=== PATIENT | female | born 1945 | race Caucasian/White ===

== ENCOUNTER 2020-09-29 15:47 | Outpatient (CLI) | payer MEDICARE | END 2020-09-29 15:48 | disposition home or self-care (01) | LOC: CSHMRI 15:47 | PROVIDERS: ATTEND Neurological Surgery | DX: D32.0 Benign neoplasm of cerebral meninges (principal) | CPT/HCPCS: 70553 ==

== ENCOUNTER 2022-12-01 13:06 | Outpatient (CLI) | payer OTHER, MEDICARE | END 2022-12-01 13:07 | disposition home or self-care (01) | LOC: CSHMRI 13:06 | PROVIDERS: ATTEND Psychiatry & Neurology Neurology | DX: R41.3 Other amnesia (principal); G93.89 Other specified disorders of brain; I67.9 Cerebrovascular disease, unspecified | CPT/HCPCS: 70553; 82565 ==

== ENCOUNTER 2023-01-12 19:14 | Inpatient (IN) | payer OTHER, MEDICARE ==
[2023-01-12 19:49] LABS: #Monocytes 0.4 10x3/uL (0.0-1.1); %Basophils 0.1 % (0.0-2.0); %Lymphocytes 4.2 % (18.0-47.0); %Monocytes 2.2 % (0.0-10.0); %Neutrophils 93.2 % (40.0-75.0); Hematocrit 40.3 % (34.9-44.5); Hemoglobin 12.8 g/dL (12.0-15.5); Mean Corpuscular HGB CONC 31.8 g/dL (32.0-36.0); Mean Corpuscular Hemoglobin 27.6 pg (27.0-33.0); Mean Corpuscular Volume 86.9 fl (81.6-98.3); Platelet Count 355 10x3/uL (150-450); RBC Distribution Width 14.7 % (11.5-14.5); Red Blood Cell (RBC) Count 4.64 10x6/uL (3.90-5.03); White Blood Cell (WBC) Count 20.4 10x3/uL (3.5-10.5)
[2023-01-12 19:56] LABS: Bilirubin Neg (Negative); Blood, Urine Negative (Negative); Glucose, Urine (Dipstick) Normal (Negative); Ketone, Urine 5 mg/dL (Negative); Leukocyte Negative (Negative); Nitrite Negative (Negative); Protein, Urine (Dipstick) 15 mg/dl (Neg-Trace); Urobilinogen Normal mg/dL (Less than 2)
[2023-01-12 19:58] LABS: Clarity Clear (Clear)
[2023-01-12 20:03] LABS: ALT (SGPT) 17 U/L (8-55); AST (SGOT) 26 U/L (5-34); Albumin 4.3 g/dL (3.4-4.8); Alkaline Phosphatase 73 U/L (40-110); Anion Gap 17 mmol/L (10-20); BUN (Urea Nitrogen) 14 mg/dL (9.8-20.1); Bilirubin, Total 0.4 mg/dL (0.2-1.2); Calc. Creatinine Clearance 0 mL/min (70-130); Calcium 9.6 mg/dL (7.8-10.44); Carbon Dioxide 21 mmol/L (23-31); Chloride 104 mmol/L (98-107); Estimated GFR 55; Glucose 121 mg/dL (83-110); Potassium 4.2 mmol/L (3.5-5.1); Protein, Total 7.3 g/dL (5.8-8.1); Sodium 138 mmol/L (136-145)
[2023-01-12 20:04] LABS: Bacteria/HPF Rare-Few HPF (None Seen); CAUTI Indications for Culture Alt mental st,lethar; RBC/HPF None Seen HPF (0-3); Squamous Epithelial 0-3 HPF (0-3); WBC/HPF None Seen HPF (0-3)
[2023-01-12 20:05] LABS: Urine Culture Reflex No No
[2023-01-12 20:07] LABS: Troponin I Less than 0.010 ng/mL (< 0.028)
[2023-01-12] MEDS ORDERED: Vancomycin 1 GM VIAL ONE (21:06)
[2023-01-12] MEDS ORDERED: Cefepime 2 GM VIAL ONE (21:07)
[2023-01-12 21:32] LABS: SARS-CoV-2 NAA Rapid Test Not Detected (NotDetected)
[2023-01-12 23:03] VITALS: BMI 23.8
[2023-01-12] MEDS ORDERED: Aspirin 300 MG Suppository PR SCH (23:30)
[2023-01-12 23:59] LABS: Troponin I Less than 0.010 ng/mL (< 0.028)
[2023-01-12] MEDS ORDERED: Vancomycin HCl 500 MG in Sodium Chloride 0.9% 100 ML IVPB SCH (23:59)
[2023-01-13] MEDS: Sodium Chloride 0.9% 1,000 ML IV SCH ×2 (00:10→11:57)
[2023-01-13 00:13] LABS: Free T4 (Free Thyroxine) 1.29 ng/dL (0.70-1.48)
[2023-01-13 03:58] LABS: Barbiturates Screen Not Detected (NotDetected); Cocaine Metabolite Screen Not Detected (NotDetected); Oxycodone Screen Not Detected (NotDetected); Phencyclidine (PCP) Not Detected (NotDetected); THC/Cannabinoid Screen Not Detected (NotDetected)
[2023-01-13 04:13] LABS: Amphetamine Not Detected (NotDetected); Benzodiazepine Screen Not Detected (NotDetected); Methadone Not Detected (NotDetected); Methamphetamine Not Detected (NotDetected); Opiate Screen Not Detected (NotDetected); Tricyclic Screen Not Detected (NotDetected)
[2023-01-13 04:50] LABS: Anion Gap 15 mmol/L (10-20); BUN (Urea Nitrogen) 12 mg/dL (9.8-20.1); Calc. Creatinine Clearance 59 mL/min (70-130); Calcium 8.7 mg/dL (7.8-10.44); Carbon Dioxide 19 mmol/L (23-31); Chloride 108 mmol/L (98-107); Estimated GFR 70; Glucose 103 mg/dL (83-110); Sodium 138 mmol/L (136-145)
[2023-01-13 05:44] LABS: #Monocytes 0.6 10x3/uL (0.0-1.1); #Neutrophils 12.9 10x3/uL (1.5-8.4); %Basophils 0.2 % (0.0-2.0); %Eosinophils 0.1 % (0.0-6.0); %Lymphocytes 10.9 % (18.0-47.0); %Monocytes 4.1 % (0.0-10.0); %Neutrophils 84.2 % (40.0-75.0); Hematocrit 35.8 % (34.9-44.5); Hemoglobin 11.5 g/dL (12.0-15.5); Mean Corpuscular HGB CONC 32.1 g/dL (32.0-36.0); Mean Corpuscular Hemoglobin 27.7 pg (27.0-33.0); Mean Corpuscular Volume 86.3 fl (81.6-98.3); Mean Platelet Volume 9.2 fl (7.4-10.4); Platelet Count 300 10x3/uL (150-450); RBC Distribution Width 14.7 % (11.5-14.5); Red Blood Cell (RBC) Count 4.15 10x6/uL (3.90-5.03); White Blood Cell (WBC) Count 15.4 10x3/uL (3.5-10.5)
[2023-01-13] MEDS: Levothyroxine Sodium 100 MCG TAB PO SCH (06:25)
[2023-01-13] MEDS ORDERED: Multivit, Therapeutic 1 TAB PO SCH ×2 (09:00→21:00)
[2023-01-13] MEDS ORDERED: Ezetimibe 10 MG TAB PO SCH ×2 (09:00→21:00)
[2023-01-13] MEDS ORDERED: Aspirin 81 mg Enteric Coated Tablet PO SCH ×2 (09:00→21:00)
[2023-01-13] MEDS ORDERED: Donepezil HCl 5 MG TAB PO SCH ×2 (09:00→21:00)
[2023-01-13] MEDS ORDERED: Sertraline 100 MG TAB PO SCH ×2 (09:00→21:00)
[2023-01-13] MEDS: Cefepime 1 GM in Sodium Chloride 0.9% 100 ML IVPB SCH ×2 (11:56→22:04)
[2023-01-13] MEDS ORDERED: Lorazepam 2 MG/ML VIAL SLOW IVP SCH (15:00)
[2023-01-14] MEDS ORDERED: VANCOMYCIN 1.25 GM/250 ML BAG 1.25 GM in Premix Bag 1 BAG IVPB SCH (01:00)
[2023-01-14] MEDS: Levothyroxine Sodium 100 MCG TAB PO SCH (06:14)
[2023-01-14] MEDS: Sodium Chloride 0.9% 1,000 ML IV SCH (06:15)
[2023-01-14 06:38] LABS: #Basophils 0.1 10x3/uL (0.0-0.2); #Eosinphils 0.1 10x3/uL (0.0-0.5); #Monocytes 0.5 10x3/uL (0.0-1.1); #Neutrophils 6.6 10x3/uL (1.5-8.4); %Basophils 0.6 % (0.0-2.0); %Eosinophils 1.1 % (0.0-6.0); %Lymphocytes 20.8 % (18.0-47.0); %Neutrophils 72.2 % (40.0-75.0); Hematocrit 33.2 % (34.9-44.5); Hemoglobin 10.8 g/dL (12.0-15.5); Mean Corpuscular HGB CONC 32.5 g/dL (32.0-36.0); Mean Corpuscular Hemoglobin 28.2 pg (27.0-33.0); Mean Corpuscular Volume 86.7 fl (81.6-98.3); Mean Platelet Volume 9.1 fl (7.4-10.4); Platelet Count 270 10x3/uL (150-450); RBC Distribution Width 14.8 % (11.5-14.5); Red Blood Cell (RBC) Count 3.83 10x6/uL (3.90-5.03); White Blood Cell (WBC) Count 9.1 10x3/uL (3.5-10.5)
[2023-01-14 06:49] LABS: Anion Gap 14 mmol/L (10-20); BUN (Urea Nitrogen) 8 mg/dL (9.8-20.1); Calc. Creatinine Clearance 62 mL/min (70-130); Calcium 8.7 mg/dL (7.8-10.44); Carbon Dioxide 19 mmol/L (23-31); Chloride 111 mmol/L (98-107); Estimated GFR 74; Glucose 102 mg/dL (83-110); Potassium 3.6 mmol/L (3.5-5.1); Sodium 140 mmol/L (136-145)
[2023-01-14] MEDS: Cefepime 1 GM in Sodium Chloride 0.9% 100 ML IVPB SCH (09:07)
[2023-01-14 13:22] VITALS: BP 137/62; TEMP 98
[2023-01-14] MEDS ORDERED: Cefepime 1 GM in Sodium Chloride 0.9% 100 ML IVPB SCH (17:00)
== END 2023-01-14 14:08 | disposition home or self-care (01) | DRG 72 ==
LOC: CSHERS 19:14 → CSHTELE 21:51
PROVIDERS: ADMIT Family Medicine; ATTEND Nurse Practitioner Family
DX: G93.40 Encephalopathy, unspecified (principal); F03.90 Unspecified dementia, unspecified severity, without behavioral disturbance, psychotic disturbance, mood disturbance, and anxiety; E03.9 Hypothyroidism, unspecified; F32.A Depression, unspecified; D72.828 Other elevated white blood cell count; D32.9 Benign neoplasm of meninges, unspecified; E78.5 Hyperlipidemia, unspecified; R41.3 Other amnesia; Z20.822 Contact with and (suspected) exposure to COVID-19; Z98.890 Other specified postprocedural states; Z88.8 Allergy status to other drugs, medicaments and biological substances; Z79.82 Long term (current) use of aspirin
CPT/HCPCS: 36415; 70450; 70551; 71045; 80048; 80053; 80306; 81001; 82140; 83605; 83735; 84145; 84439; 84443; 84484; 85025; 87040; 87086; 93005; 93010; J0692; J1650; J2060; J3370; J3490; J7050

== ENCOUNTER 2023-11-13 15:31 | Inpatient (IN) | payer OTHER, MEDICARE ==
[2023-11-13 16:30] LABS: Hematocrit 34.8 % (34.9-44.5); Hemoglobin 12.5 g/dL (12.0-15.5); MDiff Complete? YES; Mean Corpuscular HGB CONC 35.9 g/dL (32.0-36.0); Mean Corpuscular Hemoglobin 31.5 pg (27.0-33.0); Mean Corpuscular Volume 87.7 fL (81.6-98.3); Mean Platelet Volume 9.3 fL (7.4-10.4); Platelet Count 242 10x3/uL (150-450); RBC Distribution Width 12.4 % (11.5-14.5); Red Blood Cell (RBC) Count 3.97 10x6/uL (3.90-5.03); White Blood Cell (WBC) Count 14.7 10x3/uL (3.5-10.5)
[2023-11-13 16:39] LABS: Acetaminophen Less than 10 mcg/mL (10.0-30.0); Alcohol Less than 10.0 mg/dL (Less than 10); Salicylate Less than 8.0 mg/dL (15.0-30.0)
[2023-11-13 16:43] LABS: ALT (SGPT) 17 U/L (8-55); AST (SGOT) 36 U/L (5-34); Alkaline Phosphatase 46 U/L (40-110); Anion Gap 14 mmol/L (10-20); BUN (Urea Nitrogen) 10 mg/dL (9.8-20.1); Bilirubin, Total 0.5 mg/dL (0.2-1.2); Calc. Creatinine Clearance 0 mL/min (70-130); Carbon Dioxide 22 mmol/L (23-31); Chloride 99 mmol/L (98-107); Estimated GFR 69; Globulin 2.8 g/dL (2.4-3.5); Glucose 140 mg/dL (83-110); Protein, Total 6.8 g/dL (5.8-8.1); Sodium 131 mmol/L (136-145)
[2023-11-13 17:22] LABS: Band 11 % (5-11); Lymphocytes 7 % (21-51); Monocytes 4 % (0-10); Neutrophil 78 % (42-75)
[2023-11-13 17:25] LABS: Dohle Bodies SLIGHT; Platelet Adequacy Comment Platelets Normal; RBC Morph Comment Within Normal Limits; Toxic Granulation SLIGHT
[2023-11-13] MEDS ORDERED: Acetaminophen 650 MG Suppository PR PRN (17:36)
[2023-11-13] MEDS ORDERED: Ondansetron ODT 4 MG TAB PO PRN (17:36)
[2023-11-13] MEDS ORDERED: Ketorolac Tromethamine 30 MG (1 mL) VIAL ONE (18:12)
[2023-11-13 18:59] LABS: Troponin I 0.028 ng/mL (< 0.028)
[2023-11-13 19:13] LABS: Free T4 (Free Thyroxine) 1.06 ng/dL (0.70-1.48); Thyroid Stimulating Hormone 0.3202 uIU/mL (0.35-4.94)
[2023-11-13] MEDS ORDERED: Communication Order-Pharmacy FS PRN (19:38)
[2023-11-13] MEDS: Communication Order-Pharmacy FS ONE (20:28)
[2023-11-13] MEDS: Famotidine 20 MG TAB PO SCH (20:56)
[2023-11-13 21:00] LABS: Troponin I 0.063 ng/mL (< 0.028)
[2023-11-13 22:19] VITALS: BMI 27.3
[2023-11-13 22:24] LABS: Lactic Acid 2.9 mmol/L (0.5-2.2)
[2023-11-14 00:15] LABS: Troponin I 0.027 ng/mL (< 0.028)
[2023-11-14 03:23] LABS: Bilirubin Neg (Negative); Blood, Urine 10 (Negative); Clarity Clear (Clear); Glucose, Urine (Dipstick) Normal (Negative); Ketone, Urine 15 mg/dL (Negative); Leukocyte Negative (Negative); Nitrite Negative (Negative); Protein, Urine (Dipstick) 30 mg/dl (Neg-Trace); Urobilinogen Normal mg/dL (Less than 2)
[2023-11-14 03:30] LABS: Bacteria/HPF None Seen HPF (None Seen); RBC/HPF 0-3 HPF (0-3); Squamous Epithelial 0-3 HPF (0-3); WBC/HPF None Seen HPF (0-3)
[2023-11-14 04:20] LABS: #Basophils 0.01 10x3/uL (0.0-0.2); #Monocytes 0.31 10x3/uL (0.0-1.1); %Basophils 0.1 % (0.0-2.0); %Lymphocytes 11.9 % (18.0-47.0); %Monocytes 3.1 % (0.0-10.0); %Neutrophils 84.3 % (40.0-75.0); Hematocrit 31.6 % (34.9-44.5); Hemoglobin 11.3 g/dL (12.0-15.5); Mean Corpuscular HGB CONC 35.8 g/dL (32.0-36.0); Mean Corpuscular Hemoglobin 31.2 pg (27.0-33.0); Mean Corpuscular Volume 87.3 fL (81.6-98.3); Mean Platelet Volume 9.3 fL (7.4-10.4); Platelet Count 194 10x3/uL (150-450); RBC Distribution Width 12.4 % (11.5-14.5); Red Blood Cell (RBC) Count 3.62 10x6/uL (3.90-5.03); White Blood Cell (WBC) Count 9.9 10x3/uL (3.5-10.5)
[2023-11-14 04:31] LABS: Anion Gap 13 mmol/L (10-20); BUN (Urea Nitrogen) 10 mg/dL (9.8-20.1); Calc. Creatinine Clearance 56 mL/min (70-130); Calcium 8.9 mg/dL (7.8-10.44); Carbon Dioxide 20 mmol/L (23-31); Chloride 100 mmol/L (98-107); Estimated GFR 72; Glucose 96 mg/dL (83-110); Potassium 3.4 mmol/L (3.5-5.1); Sodium 130 mmol/L (136-145)
[2023-11-14] MEDS: Enoxaparin 40 MG (0.4 mL) SYRINGE SC SCH (10:49)
[2023-11-14] MEDS ORDERED: Ondansetron PF 4 MG/2 ML Vial IVP PRN (19:07)
[2023-11-14] MEDS: Sodium Chloride 0.9% 1,000 ML IV SCH (21:45)
[2023-11-14] MEDS: Famotidine/PF 20 mg/2ml Vial SLOW IVP SCH (21:50)
[2023-11-15] MEDS: Levothyroxine Sodium 100 MCG TAB PO SCH (08:32)
[2023-11-15] MEDS: Aspirin 81 mg Enteric Coated Tablet PO SCH (10:12)
[2023-11-15] MEDS: Sertraline 100 MG TAB PO SCH (10:12)
[2023-11-15] MEDS: Donepezil HCl 5 MG TAB PO SCH (10:12)
[2023-11-15 10:14] LABS: #Basophils 0.02 10x3/uL (0.0-0.2); #Eosinphils 0.02 10x3/uL (0.0-0.5); #Monocytes 0.37 10x3/uL (0.0-1.1); #Neutrophils 7.82 10x3/uL (1.5-8.4); %Basophils 0.2 % (0.0-2.0); %Eosinophils 0.2 % (0.0-6.0); %Monocytes 3.9 % (0.0-10.0); %Neutrophils 83.3 % (40.0-75.0); Hemoglobin 11.5 g/dL (12.0-15.5); Mean Corpuscular HGB CONC 35.9 g/dL (32.0-36.0); Mean Corpuscular Hemoglobin 31.3 pg (27.0-33.0); Mean Corpuscular Volume 87.2 fL (81.6-98.3); Mean Platelet Volume 10.1 fL (7.4-10.4); Platelet Count 225 10x3/uL (150-450); RBC Distribution Width 12.9 % (11.5-14.5); Red Blood Cell (RBC) Count 3.67 10x6/uL (3.90-5.03); White Blood Cell (WBC) Count 9.4 10x3/uL (3.5-10.5)
[2023-11-15 10:21] LABS: Anion Gap 15 mmol/L (10-20); BUN (Urea Nitrogen) 10 mg/dL (9.8-20.1); Calc. Creatinine Clearance 62 mL/min (70-130); Calcium 8.8 mg/dL (7.8-10.44); Carbon Dioxide 18 mmol/L (23-31); Chloride 103 mmol/L (98-107); Estimated GFR 81; Glucose 83 mg/dL (83-110); Potassium 3.6 mmol/L (3.5-5.1); Sodium 132 mmol/L (136-145)
[2023-11-15] MEDS: levETIRAcetam 500 MG TAB PO SCH (21:33)
[2023-11-15] MEDS: QUEtiapine 25 MG TAB PO SCH (21:33)
[2023-11-15] MEDS: Acetaminophen 325 MG TAB PO PRN (21:33)
[2023-11-16 04:58] LABS: #Basophils 0.03 10x3/uL (0.0-0.2); #Eosinphils 0.19 10x3/uL (0.0-0.5); #Monocytes 0.69 10x3/uL (0.0-1.1); #Neutrophils 4.93 10x3/uL (1.5-8.4); %Basophils 0.4 % (0.0-2.0); %Eosinophils 2.4 % (0.0-6.0); %Lymphocytes 25.9 % (18.0-47.0); %Monocytes 8.7 % (0.0-10.0); %Neutrophils 62.2 % (40.0-75.0); Hematocrit 39.1 % (34.9-44.5); Hemoglobin 13.7 g/dL (12.0-15.5); Mean Corpuscular Hemoglobin 30.9 pg (27.0-33.0); Mean Corpuscular Volume 88.1 fL (81.6-98.3); RBC Distribution Width 13.1 % (11.5-14.5); Red Blood Cell (RBC) Count 4.44 10x6/uL (3.90-5.03); White Blood Cell (WBC) Count 7.9 10x3/uL (3.5-10.5)
[2023-11-16 05:02] LABS: Mean Platelet Volume 9.7 fL (7.4-10.4); Platelet Count 231 10x3/uL (150-450)
[2023-11-16 05:13] LABS: Anion Gap 16 mmol/L (10-20); BUN (Urea Nitrogen) 10 mg/dL (9.8-20.1); Calc. Creatinine Clearance 62 mL/min (70-130); Calcium 8.9 mg/dL (7.8-10.44); Carbon Dioxide 16 mmol/L (23-31); Chloride 108 mmol/L (98-107); Estimated GFR 81; Glucose 75 mg/dL (83-110); Potassium 3.4 mmol/L (3.5-5.1); Sodium 137 mmol/L (136-145)
[2023-11-16] MEDS: Potassium Chloride 20 MEQ TAB PO SCH (09:59)
[2023-11-16] MEDS: levETIRAcetam 500 MG (5 mL) VIAL SLOW IVP SCH (14:02)
[2023-11-16] MEDS: Donepezil HCl 5 MG TAB PO SCH (21:55)
[2023-11-16] MEDS: levETIRAcetam 500 MG TAB PO SCH (21:55)
[2023-11-16] MEDS: Sertraline 100 MG TAB PO SCH (21:56)
[2023-11-17] MEDS: Diclofenac 1% 100 GM Topical GEL TP SCH (19:32)
[2023-11-17] MEDS: D5 1/2 NS w/20 mEq KCL 1,000 ML IV SCH (19:37)
[2023-11-18] MEDS: Potassium Chloride 20 MEQ TAB PO SCH ×2 (15:57)
[2023-11-18] MEDS: QUEtiapine 25 MG TAB PO SCH (21:28)
[2023-11-18] MEDS: Diclofenac 1% 50 GM TOPICAL GEL TP SCH (21:32)
[2023-11-19 05:34] LABS: Anion Gap 16 mmol/L (10-20); BUN (Urea Nitrogen) 11 mg/dL (9.8-20.1); Calc. Creatinine Clearance 62 mL/min (70-130); Calcium 9.3 mg/dL (7.8-10.44); Carbon Dioxide 22 mmol/L (23-31); Chloride 102 mmol/L (98-107); Estimated GFR 81; Glucose 103 mg/dL (83-110); Magnesium 1.8 mg/dL (1.6-2.6); Potassium 4.2 mmol/L (3.5-5.1); Sodium 136 mmol/L (136-145)
[2023-11-19] MEDS: Diclofenac 1% 50 GM TOPICAL GEL TP SCH (08:43)
[2023-11-19] MEDS: Magnesium 2 GM/50 ML(in water) 2 GM in Premix 1 BAG IVPB SCH (08:44)
[2023-11-19] MEDS: QUEtiapine 25 MG TAB PO SCH (21:01)
[2023-11-20 08:45] VITALS: TEMP 98.1
[2023-11-20 14:14] VITALS: BP 102/62
== END 2023-11-20 14:47 | DRG 71 ==
LOC: CSHERS 15:31 → CSHTELE 18:06 → OBSVTOIN 11-14 16:40
PROVIDERS: ADMIT Family Medicine; ATTEND Internal Medicine
DX: G93.40 Encephalopathy, unspecified (principal); F03.93 Unspecified dementia, unspecified severity, with mood disturbance; F05 Delirium due to known physiological condition; Z88.8 Allergy status to other drugs, medicaments and biological substances; D72.829 Elevated white blood cell count, unspecified; Z79.899 Other long term (current) drug therapy; F32.A Depression, unspecified; E03.9 Hypothyroidism, unspecified; Z91.018 Allergy to other foods; Z79.82 Long term (current) use of aspirin; Z79.890 Hormone replacement therapy; R41.3 Other amnesia
CPT/HCPCS: 36415; 70450; 70551; 71045; 72170; 74230; 80048; 80053; 80307; 81001; 82140; 82550; 83605; 83735; 84145; 84439; 84443; 84481; 84484; 85025; 87040; 93005; 96372; 96374; G0378; J1650; J1885; J1953; J3475; J3480; J7050; S0028